=== PATIENT | male | born 1990 | race Caucasian/White ===

== ENCOUNTER 2016-04-30 19:52 | Emergency (ER) | payer OTHER ==
[2016-04-30 20:22] VITALS: BP 142/80; PULSE 118; TEMP 98.2; BMI 29.1
[2016-04-30 21:40] LABS: BASOPHIL 1.2 % (0-2.0); EOSINOPHIL 0.1 % (0-4.5); MCH 28.3 pg (25.7-33.7); MCHC 33.3 g/dl (32.0-35.9); MEAN CELL VOLUME 84.9 fl (80-96); MEAN PLT VOLUME 7.8 fl (7.5-11.1); NEUTROPHILS 79.4 % (42.8-82.8); PLATELET COUNT 360 K/MM3 (134-434); RDW 14.1 % (11.9-15.9); WHITE BLOOD COUNT 14.8 K/mm3 (4.0-10.0)
--- NOTE | 2016-04-30 21:40 | PDOC ---
History of Present Illness - General Chief Complaint: Wound Infection Stated Complaint: LUMP IN HEAD/FEVER/BLURRY VISION/DIZZY Time Seen by Provider: 04/30/16 20:42 - History of Present Illness Initial Comments: 04/30/16 21:28 CHIEF COMPLAINT: bleeding lesions to head, blurry vision, RICHAR[place]ON HISTORY OF PRESENT ILLNESS: 25 yo M with hx of scalp lesions presents to ED with abscess to parietal scalp. Patient states he "has had this before" but his doctor "only gave me Kenalog injections" to the scalp. Patient states that he noticed a bump on his head 3 weeks ago. Last night the abscess started bleeding, and he felt nauseous and had chills. He also complains of some blurry vision and headache described "a rope around my head." No recent travel or sick contacts. PAST MEDICAL HISTORY: Denies past medical history FAMILY HISTORY: Denies SOCIAL HISTORY: Denies tobacco, alcohol, illicit drug use. SURGICAL HISTORY: Denies ALLERGIES: No known drug allergies REVIEW OF SYSTEMS General/Constitutional: Denies fever or chills. Denies weakness, weight change. HEENT: Denies change in vision. Denies ear pain or discharge. Denies sore throat. Cardiovascular: Denies chest pain or shortness of breath. Respiratory: Denies cough, wheezing, or hemoptysis. Gastrointestinal: Denies nausea, vomiting, diarrhea or constipation. Denies rectal bleeding. Genitourinary: Denies dysuria, frequency, or change in urination. Musculoskeletal: Denies joint or muscle swelling or pain. Denies neck or back pain. Skin: Bump on the back of my head that bled last night. Denies rash or easy bruising. Neurologic: Headache since last night. vertigo, loss of consciousness, or loss of sensation. PHYSICAL EXAM General Appearance: Well-appearing, appropriately dressed. No apparent distress , no intoxication. HEENT: 2cm x 2 cm bullous lesion to medial parietal scalp. No blood, no discharge. EOMI, PERRLA, normal ENT inspection, normal voice, TMs normal, pharynx normal. No conjunctival pallor. No photophobia, scleral icterus. Neck: Supple. Trachea midline. No tenderness, rigidity, carotid bruit, stridor , lymphadenopathy, or thyromegaly. Respiratory/Chest: Lungs CTAB. No shortness of breath, chest tenderness, respiratory distress, accessory muscle use. No crackles, rales, rhonchi, stridor , wheezing, dullness Cardiovascular: RRR. S1, S2. No JVD, murmur, bradycardia, tachycardia. Vascular Pulses: Dorsalis-Pedis (R): 2+, Dorsalis-Pedis (L): 2+ Gastrointestinal/Abdominal: Normal bowel sounds. Abdomen soft, non-distended. No tenderness or rebound tenderness. No organomegaly, pulsatile mass, guarding, hernia, hepatomegaly, splenomegaly. Lymphatic: No adenopathy, tenderness. Musculoskeletal/Extremities: Normal inspection. FROM of all extremities, normal capillary refill. Pelvis Stable. No CVA tenderness. No tenderness to extremities, pedal edema, swelling, erythema or deformity. Integumentary: See HEENT. Otherwise appropriate color, dry, warm. No cyanosis, erythema, jaundice or rash Neurologic: dynamic etching processor II-XII intact. Fully oriented, alert. Appropriate mood/affect. Motor strength 5/5. No appreciable EOM palsy, facial droop or sensory deficit. Past History - Past Medical History Allergies/Adverse Reactions: Allergies Allergy/AdvReac Type Severity Reaction Status Date / Time No Known Allergies Allergy Verified 04/30/16 20:11 Home Medications: Ambulatory Orders Doxycycline Monohydrate [Mondoxyne Nl] 100 mg PO BID #30 capsule 04/30/16 Escitalopram Oxalate [Lexapro -] 20 mg PO DAILY 04/30/16 Ibuprofen 600 mg PO TID PRN #21 tablet 04/30/16 Quetiapine Fumarate [Seroquel -] 50 mg PO HS 04/30/16 Psychiatric Problems: Yes - Psycho/Social/Smoking Cessation Hx Suicidal Ideation: No Smoking History: Current every day smoker Information on smoking cessation initiated: No *Physical Exam - Vital Signs Last Vital Signs Temp Pulse Resp BP Pulse Ox 98.2 F 118 H 18 142/80 98 04/30/16 20:13 04/30/16 20:13 04/30/16 20:13 04/30/16 20:13 04/30/16 20:13 ED Treatment Course - LABORATORY CBC & Chemistry Diagram: 04/30/16 21:22 04/30/16 21:22 Medical Decision Making - Medical Decision Making 04/30/16 23:34 25 yo M with hx of scalp lesions presents to ED with abscess to scalp accompanied by headache and nausea. -CBC, CMP -8 mg Zofran ODT -600 mg ibuprofen Clinical presentation consistent with dissecting cellulitis of scalp. -Doxycycline 100 mg bid -600 mg ibuprofen tid prn pain/fever Advised patient to take medications as prescribed. Advised patient to f/u with boat designer for further evaluation and management of dissecting cellulitis of scalp. Advised patient of signs and symptoms for return to ER; patient verbalized understanding and agrees to plan *DC/Admit/Observation/Transfer Diagnosis at time of Disposition: Dissecting cellulitis of scalp - Discharge Dispostion Disposition: HOME Condition at time of disposition: Stable Admit: No - Prescriptions Prescriptions: Ibuprofen 600 mg PO TID PRN #21 tablet PRN Reason: Fever Or Pain Doxycycline Monohydrate [Mondoxyne Nl] 100 mg PO BID #30 capsule - Referrals Referrals: Graciela Burns [Primary Care Provider] - Karuna Melissa MD [Staff Physician] - - Patient Instructions Printed Discharge Instructions: DI for Cellulitis -- Adult Additional Instructions: Please take antibiotics as prescribed. Take ibuprofen as needed for pain or fever. Please follow up with the boat designer (referral provided) for further evaluation and possible drainage of the abscess. If you experience fever unrelieved by ibuprofen, experience vomiting or diarrhea, feel stiffness to your neck, or have any new or worsening symptoms, please return to the ER.
[2016-04-30 22:18] LABS: ALK PHOS 98 U/L (45-117); ANION GAP 9 (8-16); BILIRUBIN,TOTAL 0.3 mg/dL (0.2-1.0); CALCIUM 9.6 mg/dL (8.5-10.1); CO2 27 mmol/L (21-32); CREATININE 0.9 mg/dL (0.7-1.3); GLUCOSE,RANDOM 88 mg/dL (74-106); SGOT/AST 76 U/L (15-37); SGPT/ALT 107 U/L (12-78); TOT PROT 7.5 g/dl (6.4-8.2)
[2016-04-30] MEDS ORDERED: ONDANSETRON *ODT* 4 MG TABLET SL ONE (22:31)
[2016-04-30] MEDS ORDERED: IBUPROFEN 600 MG TABLET (FP) PO ONE ×2 (22:32→22:33)
[2016-04-30] MEDS ORDERED: ONDANSETRON *ODT* 4 MG TABLET ONE (22:33)
== END 2016-04-30 23:04 | disposition home or self-care (01) ==
LOC: JER 19:52
DX: L03.811 Cellulitis of head [any part, except face] (principal); F17.210 Nicotine dependence, cigarettes, uncomplicated
CPT/HCPCS: 36415; 80053; 85025; 99281-25

== ENCOUNTER 2016-08-06 23:59 | Emergency (ER) | payer OTHER ==
--- NOTE | 2016-08-07 00:42 | PDOC ---
History of Present Illness - General Stated Complaint: WITHDARWLS SYMPTOMS Time Seen by Provider: 08/07/16 00:31 History Source: Patient - History of Present Illness Initial Comments: 08/07/16 05:05 26-year-old male presents to the emergency department requesting for detox. He shouldn't states he took 6 bundles of heroin/snorted, approximately 15-20 tabs of Xanax 2 mg over the past week. Patient denies headache, dizziness, lightheadedness, difficulty breathing, chest pain, shortness of breath, abdominal pains, ext numbness or tingling sensation. Patient was discharged from [facility] approximately 3 months ago for opiate detox. Past History - Past Medical History Allergies/Adverse Reactions: Allergies Allergy/AdvReac Type Severity Reaction Status Date / Time No Known Allergies Allergy Verified 08/07/16 01:48 Home Medications: Ambulatory Orders Doxycycline Monohydrate [Mondoxyne Nl] 100 mg PO BID #30 capsule 04/30/16 Escitalopram Oxalate [Lexapro -] 20 mg PO DAILY 04/30/16 Ibuprofen 600 mg PO TID PRN #21 tablet 04/30/16 Quetiapine Fumarate [Seroquel -] 50 mg PO HS 04/30/16 Psychiatric Problems: Yes - Psycho/Social/Smoking Cessation Hx Suicidal Ideation: No Smoking History: Current every day smoker Review of Systems - Review of Systems Able to Perform ROS?: Yes Comments:: 08/07/16 02:44 CONSTITUTIONAL: Absent: fever, chills, diaphoresis, generalized weakness, malaise, loss of appetite HEENT: Absent: rhinorrhea, nasal congestion, throat pain, throat swelling, difficulty swallowing, mouth swelling, ear pain, eye pain, visual Changes CARDIOVASCULAR: Absent: chest pain, loss of consciousness, palpitations, irregular heart rate, peripheral edema RESPIRATORY: Absent: cough, shortness of breath, dyspnea with exertion, orthopnea, wheezing, stridor, hemoptysis GASTROINTESTINAL: Absent: abdominal pain, abdominal distension, nausea, vomiting, diarrhea, constipation, melena, hematochezia GENITOURINARY: Absent: dysuria, frequency, urgency, hesitancy, hematuria, flank pain, genital pain MUSCULOSKELETAL: Absent: myalgia, arthralgia, joint swelling SKIN: Absent: rash, itching, pallor HEMATOLOGIC/IMMUNOLOGIC: Absent: easy bleeding, easy bruising, lymphadenopathy, frequent infections ENDOCRINE: Absent: unexplained weight gain, unexplained weight loss, heat intolerance, cold intolerance NEUROLOGIC: Absent: headache, focal weakness or paresthesias, dizziness, unsteady gait, seizure, mental status changes, bladder or bowel incontinence PSYCHIATRIC: Absent: anxiety, depression, suicidal or homicidal ideation, hallucinations. Is the patient limited Chilean proficient: No *Physical Exam - Physical Exam Comments: 08/07/16 02:44 ED Treatment Course - LABORATORY CBC & Chemistry Diagram: 08/07/16 01:01 08/07/16 01:01 *DC/Admit/Observation/Transfer Diagnosis at time of Disposition: Opiate dependence Qualifiers: Substance use status: with unspecified opioid-induced disorder Qualified Code(s ): F11.29 - Opioid dependence with unspecified opioid-induced disorder - Discharge Dispostion Disposition: I.P. ALCOHOL/SUBS ABUSE REHAB Condition at time of disposition: Fair - Patient Instructions Printed Discharge Instructions: DI for Drug Abuse and Drug Addiction Additional Instructions: Return back to the emergency department for any concerns Progress Note - Progress Note Progress Note: 0235hrs: Spoke to JANE Portillo/ at Detox. Will accept patient
[2016-08-07 01:19] LABS: BASOPHIL 0.7 % (0-2.0); EOSINOPHIL 0.9 % (0-4.5); MCH 28.2 pg (25.7-33.7); MEAN CELL VOLUME 85.4 fl (80-96); MEAN PLT VOLUME 7.8 fl (7.5-11.1); NEUTROPHILS 68.7 % (42.8-82.8); PLATELET COUNT 405 K/MM3 (134-434); RDW 13.8 % (11.9-15.9); WHITE BLOOD COUNT 9.3 K/mm3 (4.0-10.0)
[2016-08-07 01:31] LABS: URINE MARIJUANA THC NEGATIVE ng/ml (CUTOFF=50)
[2016-08-07 01:43] LABS: ALBUMIN 4.2 g/dl (3.4-5.0); ANION GAP 11 (8-16); CALCIUM 9.9 mg/dL (8.5-10.1); CO2 26 mmol/L (21-32); GLUCOSE,RANDOM 98 mg/dL (74-106)
[2016-08-07 01:48] VITALS: BP 139/84; PULSE 75; TEMP 97.5; BMI 25.8
[2016-08-07 01:49] LABS: ALK PHOS 98 U/L (45-117); BILIRUBIN,TOTAL 0.4 mg/dL (0.2-1.0); COCKROFT - GAULT 117.46; SGOT/AST 24 U/L (15-37); SGPT/ALT 51 U/L (12-78); TOT PROT 8.1 g/dl (6.4-8.2)
[2016-08-07] MEDS ORDERED: chlordiazePOXIDE HCL 25 MG CAPSULE PO ONE (02:15)
--- NOTE | 2016-08-09 10:31 | EKG ---
Test Reason : Blood Pressure : / mmHG Vent. Rate : 090 BPM Atrial Rate : 090 BPM P-R Int : 150 ms QRS Dur : 082 ms QT Int : 340 ms P-R-T Axes : 075 074 021 degrees QTc Int : 415 ms NORMAL SINUS RHYTHM POSSIBLE LEFT ATRIAL ENLARGEMENT [place] DEPRESSION NONSPECIFIC ST AND T WAVE ABNORMALITY ABNORMAL ECG NO PREVIOUS ECGS AVAILABLE Confirmed by ANUEL GASPAR MD ([id number]) on 08/09/2016 10:30:52 AM Referred By: Confirmed By:ANUEL GASPAR MD
== END 2016-08-07 02:49 | disposition other institution (70) ==
LOC: JER 23:59
DX: F11.29 Opioid dependence with unspecified opioid-induced disorder (principal); F13.20 Sedative, hypnotic or anxiolytic dependence, uncomplicated
CPT/HCPCS: 36415; 71020-TC; 80053; 80307; 85025; 93005; 93010; 99281-25

== ENCOUNTER 2016-08-07 03:04 | Inpatient (IN) | payer OTHER ==
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
[2016-08-07] MEDS ORDERED: MENTHOL/PHENOL 1 EACH UD MM PRN (03:34)
[2016-08-07] MEDS ORDERED: diazePAM 5 MG TABLET PO PRN (03:34)
[2016-08-07] MEDS ORDERED: ACETAMINOPHEN 325 MG TABLET (FP) PO PRN (03:34)
[2016-08-07] MEDS ORDERED: LOPERAMIDE HCL 2 MG CAPSULE PO PRN (03:34)
[2016-08-07] MEDS ORDERED: hydrOXYzine PAMOATE 50 MG CAPSULE (FP) PO PRN (03:34)
[2016-08-07] MEDS ORDERED: P-EPHED 60MG/TRIPROLIDI 2.5MG TABLET PO PRN (03:34)
[2016-08-07] MEDS ORDERED: guaiFENesin/D-METHORPHAN HB 10 ML UNIT-DOSE CUPS PO PRN (03:34)
[2016-08-07] MEDS ORDERED: IBUPROFEN 400 MG TABLET (FP) PO PRN (03:34)
[2016-08-07] MEDS ORDERED: MAGNESIUM HYDROX 2400MG/30ML ORAL SUSPENSION 30 ML CUP PO PRN (03:34)
[2016-08-07] MEDS ORDERED: diazePAM 5 MG TABLET PO ONE (03:34)
[2016-08-07] MEDS ORDERED: diphenhydrAMINE HCL 50 MG CAPSULE PO PRN (03:34)
[2016-08-07] MEDS ORDERED: METHADONE HCL 10 MG TABLET (FOR DETOX USE ONLY) PO ONE ×3 (03:34→23:00)
[2016-08-07] MEDS ORDERED: NICOTINE POLACRILEX 4 MG GUM BUC PRN (03:34)
[2016-08-07] MEDS ORDERED: MAGNESIUM CITRATE 300 ML BOTTLE PO PRN (03:34)
[2016-08-07] MEDS ORDERED: MAG HYDROX/AL HYDROX/SIMETH 30 ML UNIT-DOSE CUP PO PRN (03:34)
[2016-08-07 03:39] VITALS: BMI 27.4
[2016-08-07] MEDS ORDERED: diazePAM 5 MG TABLET PO SCH (06:00)
[2016-08-07 07:20] VITALS: BP 130/80; PULSE 96; TEMP 97.1
[2016-08-07] MEDS ORDERED: PRENATAL VITAMINS W/ FOLIC ACID TABLET (FP) PO SCH (10:00)
[2016-08-07] MEDS ORDERED: NICOTINE 21 MG/24 HOURS TOPICAL PATCH TD SCH (10:00)
--- NOTE | 2016-08-07 11:37 | PN ---
[facility] CIWA - CIWA Score Nausea/Vomitin Muscle Tremors: 2 Anxiety: 2 Agitation: 2 Paroxysmal Sweats: 2 Orientation: 0-Oriented Tacttile Disturbances: 1-Very Mild Itch/Numbness Auditory Disturbances: 1-Very Mild Visual Disturbances: 2-Mild Sensitivity Headache: 2-Mild CIWA-Ar Total Score: 16 BHS COWS - Scale Resting Pulse: 2= IA 101-120 Sweatin=Flushed/Facial Moisture Restless Observation: 1= Difficult to Sit Still Pupil Size: 0= Normal to Room Light Bone or Joint Aches: 2= Severe Diffuse Aches Runny Nose/ Eye Tearin= Runny Nose/Eyes GI Upset > 30mins: 2= Nausea/Diarrhea Tremor Observation of Outstretched Hands: 2= Slight Tremor Visible Yawning Observation: 1= 1-2x During Session Anxiety or Irritability: 2=Irritable/Anxious Goose Flesh Skin: 3=Piloerection COWS Score: 19 BHS Progress Note (SOAP) Subjective: back pain,shakes, sweats, cramps and anxiety Objective: 08/07/16 11:36 Vital Signs - 8 hr 08/07/16 08/07/16 04:32 07:20 Temperature 97.3 F L 97.1 F L Pulse Rate 103 H 96 H Respiratory 18 16 Rate Blood Pressure 145/92 130/80 labs pending Assessment: 08/07/16 11:37 withdrawal sx Plan: continue detox
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
--- NOTE | 2016-08-07 15:11 | DS ---
[facility] Detox Discharge Summary Admission Date: 08/07/16 Discharge Date: 08/07/16 - History Present History: Cocaine Dependence, Opioid Dependence Pertinent Past History: Denies past medical history - Physical Exam Results Vital Signs: Vital Signs Temperature 97.1 F L 08/07/16 07:20 Pulse Rate 96 H 08/07/16 07:20 Respiratory Rate 16 08/07/16 07:20 Blood Pressure 130/80 08/07/16 07:20 O2 Sat by Pulse Oximetry (%) Pertinent Admission Physical Exam Findings: withdrawal sx - Medication Discharge Medications: Ambulatory Orders Doxycycline Monohydrate [Mondoxyne Nl] 100 mg PO BID #30 capsule 04/30/16 Escitalopram Oxalate [Lexapro -] 20 mg PO DAILY 04/30/16 Ibuprofen 600 mg PO TID PRN #21 tablet 04/30/16 Quetiapine Fumarate [Seroquel -] 50 mg PO HS 04/30/16 - Diagnosis (1) Cocaine dependence, uncomplicated Status: Acute (2) Nicotine dependence Status: Acute Qualifiers: Nicotine product type: cigarettes Substance use status: uncomplicated Qualified Code(s): F17.210 - Nicotine dependence, cigarettes, uncomplicated (3) Opioid dependence with withdrawal Status: Acute (4) Sedative, hypnotic or anxiolytic dependence with withdrawal, uncomplicated Status: Acute (5) Substance induced mood disorder Status: Acute (6) Dissecting cellulitis of scalp Status: Acute - AMA Did Patient Leave Against Medical Advice: Yes
[2016-08-07] MEDS ORDERED: THIAMINE HCL 100 MG TABLET (FP) PO SCH (22:00)
[2016-08-08] MEDS ORDERED: METHADONE HCL 10 MG TABLET (FOR DETOX USE ONLY) PO SCH (10:00)
[2016-08-09] MEDS ORDERED: METHADONE HCL 5 MG TABLET (FOR DETOX USE ONLY) PO SCH (10:00)
[2016-08-09] MEDS ORDERED: diazePAM 5 MG TABLET PO SCH (10:00)
[2016-08-11] MEDS ORDERED: METHADONE HCL 10 MG TABLET (FOR DETOX USE ONLY) PO SCH (10:00)
[2016-08-11] MEDS ORDERED: diazePAM 5 MG TABLET PO SCH (10:00)
[2016-08-12] MEDS ORDERED: METHADONE HCL 5 MG TABLET (FOR DETOX USE ONLY) PO SCH (06:00)
== END 2016-08-07 12:05 | disposition left against medical advice (07) | DRG 770 ==
LOC: YASAS 03:04 → Y3N 03:05
PROVIDERS: ADMIT Internal Medicine; ATTEND Internal Medicine
PROC: HZ2ZZZZ Detoxification Services for Substance Abuse Treatment (ICD-10-PCS; principal; 2016-08-07)
DX: F11.23 Opioid dependence with withdrawal (principal); F13.230 Sedative, hypnotic or anxiolytic dependence with withdrawal, uncomplicated; F14.20 Cocaine dependence, uncomplicated; F17.210 Nicotine dependence, cigarettes, uncomplicated; F19.24 Other psychoactive substance dependence with psychoactive substance-induced mood disorder; L03.811 Cellulitis of head [any part, except face]; Z87.438 Personal history of other diseases of male genital organs
CPT/HCPCS: 36415; 86593

== ENCOUNTER 2016-10-25 21:03 | Emergency (ER) | payer OTHER ==
[2016-10-25 21:16] VITALS: BP 116/76; PULSE 104; TEMP 98.7; BMI 33.9
--- NOTE | 2016-10-25 21:25 | PDOC ---
Attending Attestation - Resident Resident Name: Basilio Mireles - ED Attending Attestation I have performed the following: I have examined & evaluated the patient, The case was reviewed & discussed with the resident, I agree w/resident's findings & plan - HPI HPI: The patient is a 26 yo M with a PMHx of polysubstance abuse who presents with hallucinations. The patient states in 2005 he injured his leg and subsequently got hooked on narcotics. The patient states he is trying to get back to a rehab that accepts his insurance. The patient states hes having mainly auditory and occasionally visual hallucinations. The patient states he's had these for a long time but theyve been worse than normal. - Physicial Exam PE: GENERAL: Awake, alert, and fully oriented, in no acute distress HEAD: No signs of trauma EYES: PERRLA, EOMI, sclera anicteric, conjunctiva clear ENT: Auricles normal inspection, hearing grossly normal, nares patent, oropharynx clear without exudates. Moist mucosa NECK: Normal ROM, supple, no lymphadenopathy, JVD, or masses LUNGS: Breath sounds equal, clear to auscultation bilaterally. No wheezes, and no crackles HEART: Regular rate and rhythm, normal S1 and S2, no murmurs, rubs or gallops ABDOMEN: Soft, nontender, normoactive bowel sounds. No guarding, no rebound. No masses EXTREMITIES: Normal range of motion, no edema. No clubbing or cyanosis. No cords, erythema, or tenderness NEUROLOGICAL: Cranial nerves II through XII grossly intact. Normal speech, gait not assessed. SKIN: Warm, Dry, normal turgor, no rashes or lesions noted. - Medical Decision Making Documentation prepared by Mai Spears, acting as medical staff physician for Jorge Parra MD/. <Mai Spears - Last Filed: 10/26/16 00:02> - Resident Resident Name: Basilio Mireles - ED Attending Attestation I have performed the following: I have examined & evaluated the patient, The case was reviewed & discussed with the resident, I agree w/resident's findings & plan, Exceptions are as noted - HPI HPI: 10/26/16 00:09 wants detox - Physicial Exam PE: 10/26/16 00:10 no acute withdrawal - Medical Decision Making 10/26/16 00:10 Medically Cleared, [facility] does have a bed available and his insurance company referred him here/there Will have family drive patient to [facility] now. I agree with Dr. Mireles's assessment and plan <Jorge Parra - Last Filed: 10/26/16 00:11> Heart Score/ECG Review #1 NSR @ 88bpm. Nonspecific T wave abnormality. <Mai Spears - Last Filed: 10/26/16 00:02>
--- NOTE | 2016-10-25 23:35 | PDOC ---
History of Present Illness - General Chief Complaint: Psychiatric Stated Complaint: STOMACH PAIN Time Seen by Provider: 10/25/16 21:21 History Source: Other - History of Present Illness Initial Comments: 26M with pmh of narcotics abuse, depression, anxiety and schizophrenia presents to the ED with mother, girlfriend and [id number] for increased hallucination and non-compliance with outpatient treatment of detoxification. Family is concerned that patient is abusing suboxone and methadone and avoids going to group therapy. Patient is in agreement with concerns and wants inpatient help. Was previously seen for 30 days from August to September 2016 at [facility] for Detox and management and patient/family agrees with clear benefit of inpatient. Patient declares being riddled with guilt for making his family go through this, but looks forward to treatment at [facility] which his insurance covers. Past History - Past Medical History Allergies/Adverse Reactions: Allergies No Known Allergies Allergy (Verified 10/25/16 21:12) Home Medications: Ambulatory Orders Doxycycline Monohydrate [Mondoxyne Nl] 100 mg PO BID #30 capsule 04/30/16 Escitalopram Oxalate [Lexapro -] 20 mg PO DAILY 04/30/16 Ibuprofen 600 mg PO TID PRN #21 tablet 04/30/16 Quetiapine Fumarate [Seroquel -] 50 mg PO HS 04/30/16 - Social History Smoking Status: Current every day smoker Number of Cigarettes Per Day: 20 *Review of Systems - Review of Systems Constitutional: No: Symptoms Reported HEENTM: No: Symptoms Reported Respiratory: No: Symptoms reported Cardiac (ROS): No: Symptoms Reported ABD/GI: No: Symptoms Reported : No: Symptoms Reported Musculoskeletal: No: Symptoms Reported Integumentary: No: Symptoms Reported Neurological: No: Symptoms reported Psychiatric: Yes: Anxiety, Depression, Frequent Crying, Stressors, Emotional Problems, Mood Swings All Other Systems: Reviewed and Negative *Physical Exam - Vital Signs Last Vital Signs Temp Pulse Resp BP Pulse Ox 98.7 F 104 H 18 116/76 99 10/25/16 21:12 10/25/16 21:12 10/25/16 21:12 10/25/16 21:12 10/25/16 21:12 - Physical Exam General Appearance: Yes: Nourished, Appropriately Dressed HEENT: positive: EOMI, CLEMENTE, Normal ENT Inspection Neck: negative: Tender Respiratory/Chest: positive: Chest Tender, Lungs Clear, Normal Breath Sounds Cardiovascular: positive: Regular Rhythm, Regular Rate, S1, S2 Gastrointestinal/Abdominal: positive: Normal Bowel Sounds, Soft, Protuberent. negative: Tender Neurologic: positive: Fully Oriented, Alert, Normal Mood/Affect Plan - Progress Note Progress Note: 10/26/16 00:31 26 with pmh of narcotics addiction, depression and hallucinations presents to be admitted to psych inpatient for detox. No signs of acute withdrawal EKG and Labs negative for acute physical illness Dr. Parra Talked to Katey at [facility] at [facility]" who agreed to get the patient admitted. Family will drive the patient to the center. 10/26/16 00:38 - Order(s) Order(s): Orders last 12 hours Category Date Time Status EKG [ELECTROCARDIOGRAM] [CARD] Stat Cardiology 10/25/16 22:29 Ordered CBC WITH DIFFERENTIAL Stat Lab 10/25/16 22:10 Ordered CBC WITH DIFFERENTIAL Stat Lab 10/25/16 22:12 Ordered DRUG SCREEN,UR ER- [facility] Stat Lab 10/25/16 22:10 Ordered DRUG SCREEN,UR ER- [facility] Stat Lab 10/25/16 22:12 Ordered URINALYSIS Stat Lab 10/25/16 22:10 Ordered URINALYSIS Stat Lab 10/25/16 22:12 Ordered - Laboratory CBC & Chemistry Diagram: 10/25/16 23:15 10/25/16 23:15 *DC/Admit/Observation/Transfer Diagnosis at time of Disposition: History of narcotic addiction, Admitted to substance misuse detoxification center - Discharge Dispostion Admit: No - Patient Instructions Printed Discharge Instructions: Getting Treatment for Drug Addiction
[2016-10-25 23:41] LABS: BASOPHIL 1.1 % (0-2.0); MCH 27.9 pg (25.7-33.7); MCHC 33.9 g/dl (32.0-35.9); MEAN CELL VOLUME 82.2 fl (80-96); MEAN PLT VOLUME 7.5 fl (7.5-11.1); NEUTROPHILS 51.4 % (42.8-82.8); PLATELET COUNT 303 K/MM3 (134-434); RDW 12.8 % (11.9-15.9); WHITE BLOOD COUNT 8.7 K/mm3 (4.0-10.0)
[2016-10-25 23:44] LABS: URINE APPEARANCE CLEAR; URINE BILIRUBIN NEGATIVE (NEGATIVE); URINE BLOOD NEGATIVE (NEGATIVE); URINE COLOR YELLOW; URINE GLUCOSE (UA) NEGATIVE (NEGATIVE); URINE KETONE NEGATIVE (NEGATIVE); URINE LEUK ESTERASE NEGATIVE (NEGATIVE); URINE NITRITE NEGATIVE (NEGATIVE); URINE PROTEIN NEGATIVE (NEGATIVE); URINE UROBILINOGEN NEGATIVE mg/dL (0.2-1.0)
[2016-10-26] LABS: ALBUMIN 3.4 g/dl (3.4-5.0); ALK PHOS 120 U/L (45-117); ANION GAP 9 (8-16); BILIRUBIN,TOTAL 0.3 mg/dL (0.2-1.0); CALCIUM 8.7 mg/dL (8.5-10.1); CO2 29 mmol/L (21-32); CREATININE 0.9 mg/dL (0.7-1.3); GLUCOSE,RANDOM 103 mg/dL (74-106); SGOT/AST 139 U/L (15-37); SGPT/ALT 149 U/L (12-78); TOT PROT 6.5 g/dl (6.4-8.2)
[2016-10-26 00:53] LABS: URINE MARIJUANA THC NEGATIVE ng/ml (CUTOFF=50)
--- NOTE | 2016-10-26 11:48 | EKG ---
Test Reason : Blood Pressure : / mmHG Vent. Rate : 088 BPM Atrial Rate : 088 BPM P-R Int : 166 ms QRS Dur : 082 ms QT Int : 380 ms P-R-T Axes : 063 058 028 degrees QTc Int : 459 ms NORMAL SINUS RHYTHM NONSPECIFIC ST AND T WAVE ABNORMALITY ABNORMAL ECG WHEN COMPARED WITH ECG OF 07-AUG-2016 01:24, NO SIGNIFICANT CHANGE WAS FOUND CLINICAL CORRELATION IS RECOMMENDED Confirmed by DORCAS ELIZABETH MD ([id number]) on 10/26/2016 11:48:15 AM Referred By: Confirmed By:DORCAS ELIZABETH MD
[2016-11-01 00:06] LABS: METHADONE, URINE Positive (.)
== END 2016-10-26 00:40 | disposition home or self-care (01) ==
LOC: JER 21:03
DX: F11.20 Opioid dependence, uncomplicated (principal); Z71.41 Alcohol abuse counseling and surveillance of alcoholic; F17.210 Nicotine dependence, cigarettes, uncomplicated; F32.9 Major depressive disorder, single episode, unspecified
CPT/HCPCS: 80053; 80307; 81003; 85025; 93005; 93010; 99281-25; G0480; G6053